=== PATIENT | male | born 1960 | race Caucasian/White ===

== ENCOUNTER → 2016-10-13 | Outpatient (CLI) | payer BC ==
[~2016-10-13] MED LIST: ALBU1AER9 INH; ASPCH81X PO; CHOL100010 PO; CITA20TA4 PO; CZR50 PO; FRN PO; FRS/40 PO; GADAVIST IV PRN; HYDR-5688 PO; INSDGIPEN SC; INSU100I2 SC; INSUINJ4 SC; LIRA18IN SC; LPT40 PO; METF500T5 PO; MOME100A INH; MONT1TAB3 PO; MULT-845 PO; NTRGSL/4 UT; OMEP20CA9 PO; PROM25TA9 PO; RANO500T PO; VLM5CL PO; VNTHFA/IN INH
--- NOTE | 2016-10-13 13:02 | DIAGNOSTIC IMAGING REPORT ---
MRI brain/IAC BRAIN COMBO FOR IAC CLINICAL HISTORY: H90.41 Asymmetrical right sensorineural hearing lossH93.19 Tinnie tinnitus. Hearing loss. TECHNIQUE: MRI multi axial acquisition COMPARISON STUDY: None FINDINGS: Diffusion-weighted images show no acute ischemic event. Signal characteristics of the cerebellar as well as cerebral hemispheres are unremarkable rib internal auditory canals are symmetric. There is no abnormal postcontrast enhancement. The 7th and 8th nerves are unremarkable. Sella parasellar regions are unremarkable. IMPRESSION: 1. Negative MRI brain. 2. Negative MRI of the internal auditory canals. Electronically signed by: Theo Lang M.D. 10/13/2016 1:00 PM
== END | disposition home or self-care (01) ==
LOC: C.MRI 11:18
PROVIDERS: ATTEND Hospitalist
DX: H93.19 Tinnitus, unspecified ear (principal); H90.41 Sensorineural hearing loss, unilateral, right ear, with unrestricted hearing on the contralateral side; R26.89 Other abnormalities of gait and mobility

== ENCOUNTER → 2017-01-09 | Outpatient (CLI) | payer BC ==
[~2017-01-09] MED LIST changes: -GADAVIST IV PRN
[2017-01-09 11:00] LABS: BLOOD UREA NITROGEN 7 mg/dl (7-18); BUN/CREATININE RATIO 6.2 (10-20); CALCIUM 8.5 mg/dl (8.5-10.1); CARBON DIOXIDE 25 mmol/L (21-32); CHLORIDE 102 mmol/L (98-107); GLUCOSE 173 mg/dl (70-99); SODIUM 137 mmol/L (136-145)
[2017-01-09 11:02] LABS: ESTIMATED AVERAGE GLUCOSE 140 mg/dl; HA1C FLAG Normal (Normal)
[2017-01-09 11:10] LABS: ALB/GLOB RATIO 0.9 (0.9-2); ALKALINE PHOSPHATASE 115 U/L (45-117); ALT/SGPT 33 U/L (12-78); AST/SGOT 18 U/L (15-37); CHOLESTEROL 121 mg/dl (0-200); CHOLESTEROL/HDL RATIO 2.9; HDL CHOLESTEROL 42 mg/dl; LDL CHOLESTEROL CALCULATED 56 mg/dl; TRIGLYCERIDES 114 mg/dl (0-150); VERY LOW DENSITY LIPOPROT CALC 23 mg/dl
== END | disposition home or self-care (01) ==
LOC: C.LAB1850 09:37
PROVIDERS: ATTEND Nurse Practitioner Adult Health
DX: E11.9 Type 2 diabetes mellitus without complications (principal); E78.5 Hyperlipidemia, unspecified; E66.01 Morbid (severe) obesity due to excess calories; E55.9 Vitamin D deficiency, unspecified

== ENCOUNTER 2017-02-23 12:54 | Emergency (ER) | payer BC ==
[~2017-02-23] VITALS: Ht 185.4 cm; Wt 147.3 kg
[~2017-02-23 12:54] MED LIST changes: -INSDGIPEN SC; -LIRA18IN SC; -PROM25TA9 PO; -VNTHFA/IN INH
[2017-02-23 12:58] VITALS: TEMP 36.8; Ht 185.4 cm; Wt 147.3 kg
[2017-02-23] MEDS ORDERED: SODIUM CHLORIDE 0.9% 1000ML 1,000 ML IV STA (13:21)
[2017-02-23] MEDS ORDERED: KETOROLAC TROMETHAMINE 30 MG/ML VIAL IV STA (13:21)
[2017-02-23] MEDS ORDERED: ONDANSETRON INJ 2 MG/ML 2 ML VIAL IV STA (13:21)
[2017-02-23 13:49] LABS: BASO % 0.5 %; BASO ABS # 0.04 K/uL (0-0.2); COMPLETE YES; EOS % 1.7 %; HEMATOCRIT 44.5 % (42-52); IG% 0.1 %; LYMPH % 26.1 %; LYMPH ABS # 2.09 K/uL (1.2-3.4); MEAN CELL VOLUME 87.6 fL (80-100); MEAN CORPUSCULAR HEMOGLOBIN 30.5 pg (25-34); MEAN CORPUSCULAR HGB CONC 34.8 g/dl (32-36); MEAN PLATELET VOLUME 8.9 fL (7.4-10.4); MONO % 9.6 %; PLATELET COUNT 242 K/uL (130-400); RED BLOOD COUNT 5.08 M/uL (4.7-6.1); WHITE BLOOD COUNT 8.01 K/uL (4.8-10.8)
[2017-02-23 14:08] LABS: BUN/CREATININE RATIO 8.3 (10-20); CALCIUM 8.7 mg/dl (8.5-10.1); CREATININE 1.1 mg/dl (0.60-1.40); POTASSIUM 4.1 mmol/L (3.5-5.1)
[2017-02-23 14:47] LABS: URINE APPEARANCE CLEAR (CLEAR); URINE BILIRUBIN NEG (NEG); URINE COLOR YELLOW; URINE NITRITE NEG (NEG); URINE PH 6.5 (4.5-7.5); URINE SPECIFIC GRAVITY 1.013 (1.000-1.030); UROBILINOGEN NEG (NEG)
[2017-02-23 14:51] LABS: MANUAL MICROSCOPIC REQUIRED? NO; REVIEW REQ? NO
[2017-02-23] MEDS ORDERED: LIRA18IN SC (15:22)
[2017-02-23] MEDS ORDERED: INSDGIPEN SC (15:22)
[2017-02-23] MEDS ORDERED: VNTHFA/IN INH (15:22)
[2017-02-23] MEDS ORDERED: PROM25TA9 PO (15:34)
[2017-02-23 15:44] VITALS: BP 132/80; PULSE 75; O2SAT 97
--- NOTE | 2017-02-23 15:50 | EMERGENCY ROOM VISIT NOTE ---
History First contact with patient: 13:04 Chief Complaint: VOMITING Stated Complaint: DIARRHEA,VOMITING,NAUSEA,WEAK,LIGHT HEADED History of Present Illness The patient is a 56 year old male who presents to the Emergency Room with complaints of a little more than 48 hours of nausea, vomiting and diarrhea. The patient reports that his symptoms started suddenly Monday morning. The patient now reports that he is becoming weak, lightheaded and with headache. The patient reports that his grandchildren had similar symptoms over the weekend. The patient denies any fevers or chills, difficulty with urination, chest pain, cough, shortness of breath, sore throat or sinus congestion. The patient does have a history of diabetes, and is on Victoza. His blood glucose levels are usually between 100-120 since being switched to Victoza approximately 5 weeks ago. His blood sugars on Monday were between 135 and 150. He reports that his levels were normal today. He did feel better after getting up this morning, but now reports worsening nausea and diarrhea late morning. He rates his overall discomfort an 8 out of 10. He denies any recent foreign travel. He denies eating any unusual foods. Review of Systems HEENT: Denies visual problems, hearing loss, tinnitus. Denies difficulty swallowing or oral lesions. PULMONARY: Denies cough, shortness of breath, sputum production or hemoptysis. CARDIOVASCULAR: Denies chest pain, palpitations, dyspnea on exertion, orthopnea or peripheral edema. GASTROINTESTINAL: See history of present illness. GENITOURINARY: Denies dysuria, frequency, urgency or nocturia. NEUROLOGIC: History of headaches. MUSCULOSKELETAL: Denies history of joint tenderness/swelling. SKIN: Denies rashes or lesions. PSYCHIATRIC: Denies history of depression or mental illness. ENDOCRINE: History of diabetes. Denies thyroid disorders. Past Medical/Surgical History Medical Problems: (1) ASTHMA, UNSPECIFIED (2) BODY MASS INDEX 60.0-69.9, ADULT (3) Migraine (4) NASAL & SINUS DIS NEC Medical Problems: (1) ASTHMA, UNSPECIFIED (2) Bipolar Disorder, Unspecified (3) BODY MASS INDEX 60.0-69.9, ADULT (4) Congestive Heart Failure Nos (5) Coronary Atherosclerosis Of [place] Coronary Vessel (6) Depressive Disorder Nec (7) Diab Kristen Wo Compl, Type Ii Or Unspec Type, Not Uncntrld (8) Duodenal Ulcer Nos (9) Esophageal Reflux (10) Hyperlipidemia Nec/Nos (11) Hypertension Nos (12) Migraine (13) Morbid (Severe) Obesity Due To Excess Calories (14) NASAL & SINUS DIS NEC Surgical Problems: (1) History of sinus surgery (2) History of wisdom tooth extraction Family History FH: HTN (hypertension) FH: diabetes mellitus FH: gallbladder disease FH: heart disease FH: lung disease FH: pneumonia FH: stroke Kidney stone Social History Smoking Status: Never Smoker Alcohol Use: none Marital Status: Housing Status: lives with family Occupation Status: employed, disabled Current/Historical Medications Scheduled Albuterol Hfa (Ventolin Hfa), 2-4 PUFFS INH Q6H Aspirin (Aspirin Chewable), 81 MG PO DAILY Atorvastatin (Atorvastatin Calcium), 40 MG PO HS Citalopram Hydrobromide (Citalopram Hydrobromide), 20 MG PO DAILY Insulin Glargine (Lantus Solostar), 5 UNITS SC QPM Insulin Lispro (Human) (Humalog Kwikpen), UNITS SC ACHS Liraglutide (Victoza), 1.8 ML SC QAM Losartan Potassium (Losartan Potassium), 50 MG PO DAILY Metformin Hcl Er (Glucophage Er), 1,000 MG PO QAM Mometasone Furoate-Formoterol (Dulera 100/5 Mcg), 2 AER INH BID Montelukast Sodium (Singulair), 10 MG PO HS Multiple Vitamins W/ Minerals (Centrum Silver Adult 50+), 1 TAB PO DAILY Nitroglycerin (Nitrostat), 0.4 MG UT PRN Omeprazole (Prilosec), 20 MG PO DAILY Scheduled PRN Uzhrqsetfa-Uuiehdm-Zzitlzyv (Butalbital/Aspirin/Caffei 50-325-40 mg), 1-2 CAP PO Q4H PRN for Headache Diazepam (Diazepam), 5 MG PO TID PRN for Anxiety Furosemide (Lasix), 40 MG PO DAILY PRN for Swelling/Weight Gain Promethazine Hcl (Phenergan), 25 MG PO Q6H PRN for Nausea Allergies Coded Allergies: Penicillins (Verified Allergy, Mild, RASH, 02/23/17) Physical Exam Vital Signs Date Time Temp Pulse Resp B/P Pulse Ox O2 Delivery O2 Flow Rate FiO2 02/23/17 14:22 71 20 146/93 93 Room Air 02/23/17 12:58 36.8 76 20 134/82 97 Room Air Physical Exam CONSTITUTIONAL: Healthy and well nourished. Alert and oriented X 3 with positive affect. Patient appears in mild to moderate distress. He does not appear toxic. HEENT: Normocephalic, atraumatic. Pupils equal, round and reactive. Ears and nares are clear. No scleral icterus or conjunctival injection/pallor. OROPHARYNX: Minimal posterior pharyngeal erythema without tonsillar hypertrophy or exudates. NECK: Full active range of motion without discomfort. No nuchal rigidity. RESPIRATORY: Clear to auscultation bilaterally with no wheezing, crackles, rhonchi or stridor. CARDIOVASCULAR: Regular rate and rhythm with no murmurs, rubs or gallops. GASTROINTESTINAL: Bowel sounds present in all quadrants. Abdomen is diffusely tender to palpation without any focal findings. Negative McBurney's point tenderness. Negative Lagunas sign. Negative CVA tenderness. No rigidity, guarding or rebound. MUSCULOSKELETAL: Full range of motion of all joints without discomfort. INTEGUMENTARY: No rash or other significant dermatologic conditions noted. HEMATOLOGIC: No ecchymosis or petechiae noted. NEUROLOGIC: Cranial nerves II-XII grossly intact. No focal neurologic deficits noted. Medical Decision & Procedures Laboratory Results 02/23/17 13:30 Red Blood Count 5.08, Mean Corpuscular Volume 87.6, Mean Corpuscular Hemoglobin 30.5, Mean Corpuscular Hemoglobin Concent 34.8, Mean Platelet Volume 8.9, Neutrophils (%) (Auto) 62.0, Lymphocytes (%) (Auto) 26.1, Monocytes (%) (Auto) 9.6, Eosinophils (%) (Auto) 1.7, Basophils (%) (Auto) 0.5, Neutrophils # (Auto) 4.96, Lymphocytes # (Auto) 2.09, Monocytes # (Auto) 0.77, Eosinophils # (Auto) 0.14, Basophils # (Auto) 0.04 02/23/17 13:30 Test 02/23/17 13:30 02/23/17 14:30 White Blood Count 8.01 K/uL (4.8-10.8) Red Blood Count 5.08 M/uL (4.7-6.1) Hemoglobin 15.5 g/dL (14.0-18.0) Hematocrit 44.5 % (42-52) Mean Corpuscular Volume 87.6 fL (80-100) Mean Corpuscular Hemoglobin 30.5 pg (25-34) Mean Corpuscular Hemoglobin Concent 34.8 g/dl (32-36) Platelet Count 242 K/uL (130-400) Mean Platelet Volume 8.9 fL (7.4-10.4) Neutrophils (%) (Auto) 62.0 % Lymphocytes (%) (Auto) 26.1 % Monocytes (%) (Auto) 9.6 % Eosinophils (%) (Auto) 1.7 % Basophils (%) (Auto) 0.5 % Neutrophils # (Auto) 4.96 K/uL (1.4-6.5) Lymphocytes # (Auto) 2.09 K/uL (1.2-3.4) Monocytes # (Auto) 0.77 K/uL (0.11-0.59) Eosinophils # (Auto) 0.14 K/uL (0-0.5) Basophils # (Auto) 0.04 K/uL (0-0.2) RDW Standard Deviation 41.1 fL (36.4-46.3) RDW Coefficient of Variation 12.8 % (11.5-14.5) Immature Granulocyte % (Auto) 0.1 % Immature Granulocyte # (Auto) 0.01 K/uL (0.00-0.02) Anion Gap 8.0 mmol/L (3-11) Est Creatinine Clear Calc Drug Dose 110.6 ml/min Estimated GFR () 85.3 Estimated GFR (Non- 73.6 BUN/Creatinine Ratio 8.3 (10-20) Calcium Level 8.7 mg/dl (8.5-10.1) Total Bilirubin 0.6 mg/dl (0.2-1) Direct Bilirubin 0.1 mg/dl (0-0.2) Aspartate Amino Transf (AST/SGOT) 33 U/L (15-37) Alanine Aminotransferase (ALT/SGPT) 47 U/L (12-78) Alkaline Phosphatase 98 U/L (45-117) Total Creatine Kinase 245 U/L (39-308) Total Protein 7.3 gm/dl (6.4-8.2) Albumin 3.7 gm/dl (3.4-5.0) Lipase 181 U/L (73-393) Urine Color YELLOW Urine Appearance CLEAR (CLEAR) Urine pH 6.5 (4.5-7.5) Urine Specific [place] 1.013 (1.000-1.030) Urine Protein NEG (NEG) Urine Glucose (UA) NEG (NEG) Urine Ketones NEG (NEG) Urine Occult Blood NEG (NEG) Urine Nitrite NEG (NEG) Urine Bilirubin NEG (NEG) Urine Urobilinogen NEG (NEG) Urine Leukocyte Esterase NEG (NEG) The above labs were reviewed and were grossly normal. Urinalysis shows no glucosuria or ketonuria. Medications Administered Medications (Trade) Dose Ordered Sig/Jose R Route Start Time Stop Time Status Last Admin Dose Admin Ketorolac Tromethamine 30 mg 30 mg NOW STAT IV 02/23/17 13:21 02/23/17 13:24 DC 02/23/17 13:39 30 MG Sodium Chloride (Nss 1000ml) 1,000 ml @ 999 mls/hr Q1H1M STAT IV 02/23/17 13:21 02/23/17 14:21 DC 02/23/17 13:38 999 MLS/HR Ondansetron HCl (Zofran Inj) 4 mg NOW STAT IV 02/23/17 13:21 02/23/17 13:24 DC 02/23/17 13:40 4 MG Procedure 1. IV hydration: The patient received a liter normal saline bolus 2. IV medications: Toradol 30 mg and Zofran 4 mg IVP ED Course Patient history and physical exam were performed. Nurse's notes were reviewed. Vital signs were reviewed and normal. The patient is afebrile, normotensive and not tachycardic. IV access was established, and labs were drawn. The patient was hydrated with normal saline, and received IV medications as discussed in the previous Procedure section. Review of labs showed no significant abnormalities. The patient did report improvement of his nausea, and only had mild abdominal cramping on final reevaluation. The patient felt well enough to go home, and did not feel thirsty at that time. The patient was encouraged to continue remaining well-hydrated. He was provided a prescription for Phenergan to prevent nausea. Ibuprofen or Tylenol as needed for pain or fever. The patient was encouraged to follow-up with his PCP if symptoms are not significantly improving within the next 48 hours. Turned emergency department for persistent vomiting, inability to remain hydrated, developing fever, worsening abdominal pain or other concerning symptoms. The patient was happy with plan of care, and voiced understanding of all discharge instructions. Medical Decision I suspect the patient has a viral gastroenteritis, given that his grandchildren had similar symptoms. Abdominal exam is benign without any focal findings. Laboratory studies are not suggestive of pancreatitis, hepatitis or cholecystitis. The patient is afebrile and has no leukocytosis. Impression Primary Impression: Gastroenteritis Departure Information Prescriptions Promethazine Hcl (Phenergan) 25 Mg Tab 25 MG PO Q6H Y for Nausea, #15 TAB Prov: Jese Vasquez PA 02/23/17 Referrals Roberto Gonzalez III, CRNP (PCP) Patient Instructions My [facility]
== END 2017-02-23 16:13 | disposition home or self-care (01) ==
LOC: C.EDB 12:56 → C.EDA 16:13
DX: K52.9 Noninfective gastroenteritis and colitis, unspecified (principal); E11.9 Type 2 diabetes mellitus without complications; J45.909 Unspecified asthma, uncomplicated; K21.9 Gastro-esophageal reflux disease without esophagitis; I25.10 Atherosclerotic heart disease of native coronary artery without angina pectoris; I10 Essential (primary) hypertension; E78.5 Hyperlipidemia, unspecified; F32.9 Major depressive disorder, single episode, unspecified; Z82.49 Family history of ischemic heart disease and other diseases of the circulatory system; Z98.818 Other dental procedure status; Z98.890 Other specified postprocedural states; Z83.3 Family history of diabetes mellitus; Z82.3 Family history of stroke; Z84.1 Family history of disorders of kidney and ureter; Z83.6 Family history of other diseases of the respiratory system; Z79.4 Long term (current) use of insulin; Z79.82 Long term (current) use of aspirin; Z79.84 Long term (current) use of oral hypoglycemic drugs; Z79.899 Other long term (current) drug therapy

== ENCOUNTER → 2017-10-19 | Outpatient (CLI) | payer BC ==
[~2017-10-19] VITALS: Ht 185.4 cm; Wt 148.2 kg
[~2017-10-19] MED LIST changes: -ALBU1AER9 INH; -CHOL100010 PO; -HYDR-5688 PO; +INSDGIPEN SC; -INSUINJ4 SC; +LIRA18IN SC; -RANO500T PO; +VNTHFA/IN INH
[2017-10-19 10:03] VITALS: BP 135/85; PULSE 72; Ht 185.4 cm; Wt 148.2 kg
== END | disposition home or self-care (01) ==
LOC: C.NEUR 08:50
PROVIDERS: ATTEND Internal Medicine Pulmonary Disease
DX: G47.33 Obstructive sleep apnea (adult) (pediatric) (principal)

== ENCOUNTER 2017-10-26 13:13 | Emergency (ER) | payer BC ==
[~2017-10-26] VITALS: Ht 185.4 cm; Wt 146.0 kg
[~2017-10-26 13:13] MED LIST changes: -CITA20TA4 PO; -CZR50 PO; -INSDGIPEN SC; -INSU100I2 SC; -LIRA18IN SC; -OMEP20CA9 PO; -VLM5CL PO; -VNTHFA/IN INH
[2017-10-26 13:33] VITALS: TEMP 37; Ht 185.4 cm; Wt 146.0 kg
[2017-10-26] MEDS ORDERED: INSDGIPEN SC (15:22)
[2017-10-26] MEDS ORDERED: VNTHFA/IN INH (15:22)
[2017-10-26] MEDS ORDERED: LIRA18IN SC (15:22)
--- NOTE | 2017-10-26 15:29 | EMERGENCY ROOM VISIT NOTE ---
History First contact with patient: 14:52 Chief Complaint: DIZZY Stated Complaint: LIGHT HEADED, DIZZY, SEEING WHITE SPOTS Nursing Triage Summary: pt lightheaded, dizzy, seeing white spots., lethargic, "not feeling myself". Symptoms since noon. Pt reports he had a fall on Mon, denies hitting head. c/o left writs and arm pain, left hip History of Present Illness 56M with a PMHx of [place] x 2, LE Edema, DM2 on insulin and HLD p/w a 3 hour history of sudden dizziness and seeing white spots. 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 This has happened in the past (many years ago) and per patient he was diagnosed with orthostatic hypotension and his BP meds needed to be reduced. He assumed that his current episode was due to low blood pressure. The patient drinks a lot of water and wasn't particularly warm today. The only medication change the patient did today was to take Lola -D which he doesn't usually take. The patient is a Type 2 Diabetic, he also thought he might be having low blood sugar and checked his blood sugar to be 138. Pt drink coffee at 11am, an hour before his symptoms started. He took the Lola D at 8am. Patient had a mechanical fall on ice on Monday. ROS: denies dysuria, denies diarrhea, denies SOB, denies chest pain, denies LE swelling. 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 Non smoker. Review of Systems See HPI for pertinent positives and negatives. A total of ten systems were reviewed and were otherwise negative. Past Medical/Surgical History Medical Problems: (1) ASTHMA, UNSPECIFIED (2) Bipolar Disorder, Unspecified (3) BODY MASS INDEX 60.0-69.9, ADULT (4) Congestive Heart Failure Nos (5) Coronary Atherosclerosis Of [place] Coronary Vessel (6) Depressive Disorder Nec (7) Diab Kristen Wo Compl, Type Ii Or Unspec Type, Not Uncntrld (8) Duodenal Ulcer Nos (9) Esophageal Reflux (10) Hyperlipidemia Nec/Nos (11) Hypertension Nos (12) Migraine (13) Morbid (Severe) Obesity Due To Excess Calories (14) NASAL & SINUS DIS NEC Surgical Problems: (1) History of sinus surgery (2) History of wisdom tooth extraction Family History FH: HTN (hypertension) FH: diabetes mellitus FH: gallbladder disease FH: heart disease FH: lung disease FH: pneumonia FH: stroke Kidney stone Social History Smoking Status: Never Smoker Alcohol Use: none Marital Status: Housing Status: lives with family Occupation Status: employed, disabled Current/Historical Medications Scheduled Albuterol Hfa (Ventolin Hfa), 2 PUFFS INH Q6H Aspirin (Aspirin Chewable), 81 MG PO DAILY Atorvastatin (Lipitor), 40 MG PO DAILY Cholecalciferol (Vitamin D), 2,000 UNITS DAILYBB Citalopram Hydrobromide (Citalopram Hydrobromide), 20 MG PO DAILY Cyanocobalamin (Vitamin B-12), 1,000 MCG PO DAILY Insulin Glargine (Lantus Solostar), 8 UNITS SC QPM Insulin Lispro (Human) (Humalog Kwikpen), UNITS SC ACHS Liraglutide (Victoza), 1.2 ML SC QAM Losartan Potassium (Losartan Potassium), 50 MG PO DAILY Mometasone Furoate-Formoterol (Dulera 100/5 Mcg), 2 AER INH BID Montelukast Sodium (Singulair), 10 MG PO HS Multiple Vitamins W/ Minerals (Centrum Silver Adult 50+), 1 TAB PO DAILY Nitroglycerin (Nitrostat), 0.4 MG UT PRN Omeprazole (Prilosec), 20 MG PO DAILY Scheduled PRN Zrqugqadeq-Kwiutvk-Pnrinttn (Butalbital/Aspirin/Caffei 50-325-40 mg), 1-2 CAP PO Q4H PRN for Headache Chlorpheniramine Maleate (Chlor-Trimeton), 4 MG PO Q4H PRN for Diazepam (Diazepam), 5 MG PO TID PRN for Anxiety Furosemide (Lasix), 40 MG PO DAILY PRN for Swelling/Weight Gain Ibuprofen (Advil), 400 MG PO Q6 PRN for Pain Physical Exam Vital Signs Date Time Temp Pulse Resp B/P (MAP) Pulse Ox O2 Delivery O2 Flow Rate FiO2 10/26/17 16:28 67 118/81 83 125/82 86 128/91 10/26/17 16:24 73 10/26/17 16:00 74 17 126/67 95 Room Air 10/26/17 13:33 37.0 90 18 149/89 97 Physical Exam Gen: Pt examined while sitting at bedside, he appeared dizzy and was told to lie on the bed with the rails up. Good historian, pleasant affect. Morbidly obese. HEENT: Head - normocephalic and atraumatic. Pupils are equal, round, and reactive to light. Extraocular eye muscles are intact and sclera are anicteric. Ears - bilaterally patent canals with noninjected tympanic membranes and no evidence of hemotympanum. Nose - moist nasal mucosa without discharge. Mouth - moist buccal mucosa. Oropharynx is nonerythematous and there is no tonsillar exudate or edema noted. Neck: Supple; no JVD, nuchal rigidity, cervical lymphadenopathy, or auscultated bruits. Heart: Regular rate and rhythm. There is a normal S1 and S2 with no murmurs, clicks, or gallops appreciated. Lungs: Clear to auscultation bilaterally with no wheezes, rales, or rhonchi. Abdomen: Soft, completely nontender, nondistended, with good bowel sounds. There are no palpable pulsatile masses or hepatosplenomegaly. There is no guarding, rigidity, or rebound noted. Pt is obese. There is tenderness in the LUQ from his recent fall. Extremities: No evidence of cyanosis, clubbing, or edema. There are easily palpable peripheral pulses. Neuro:The patient is awake and alert, oriented to day, time, and place. Muscle strength is 5/5 in all 4 extremities. 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 There are no cerebellar signs. Medical Decision & Procedures ER Provider Diagnostic Interpretation: CHEST ONE VIEW PORTABLE CLINICAL HISTORY: dizziness chest pain COMPARISON STUDY: 09/29/2016 FINDINGS: Moderate stable cardiomegaly. The lungs are clear. Diaphragms smooth. IMPRESSION: Moderate stable cardiomegaly. Lungs are clear. Laboratory Results 10/26/17 16:20 10/26/17 16:20 Test 10/26/17 16:20 10/26/17 16:28 Red Blood Count 5.13 M/uL (4.7-6.1) Mean Corpuscular Volume 86.9 fL (80-100) Mean Corpuscular Hemoglobin 31.2 pg (25-34) Mean Corpuscular Hemoglobin Concent 35.9 g/dl (32-36) RDW Standard Deviation 40.6 fL (36.4-46.3) RDW Coefficient of Variation 12.6 % (11.5-14.5) Mean Platelet Volume 8.7 fL (7.4-10.4) Anion Gap 6.0 mmol/L (3-11) Est Creatinine Clear Calc Drug Dose 114.2 ml/min Estimated GFR () 89.2 Estimated GFR (Non- 77.0 BUN/Creatinine Ratio 9.2 (10-20) Calcium Level 8.9 mg/dl (8.5-10.1) Magnesium Level 2.2 mg/dl (1.8-2.4) Total Bilirubin 0.4 mg/dl (0.2-1) Aspartate Amino Transf (AST/SGOT) 27 U/L (15-37) Alanine Aminotransferase (ALT/SGPT) 34 U/L (12-78) Alkaline Phosphatase 110 U/L (45-117) Total Protein 7.6 gm/dl (6.4-8.2) Albumin 3.7 gm/dl (3.4-5.0) Globulin 3.9 gm/dl (2.5-4.0) Albumin/Globulin Ratio 1.0 (0.9-2) Bedside Troponin I < 0.030 ng/ml (0-0.045) Medications Administered Medications (Trade) Dose Ordered Sig/Jose R Route Start Time Stop Time Status Last Admin Dose Admin Sodium Chloride 500 ml @ 500 mls/hr Q1H IV 10/26/17 15:30 11/25/17 15:29 10/26/17 15:30 500 MLS/HR Medical Decision The patient's care and disposition was discussed with Dr. Pascual, Attending ED Physician. This is a 56M with Dizziness. Differential diagnosis include etiologies such as benign positional vertigo, dehydration, hypovolemia, anemia, tumor, infection , hypoglycemia, electrolyte abnormalities, cardiac sources, intracerebral event , toxicologic, neurologic, as well as others were entertained. Triage Nursing notes were reviewed. ED Course included an extensive history and physical exam, labs, orthostatic vital signs. 3:00 - Entered the room to examine the patient and ordered preliminary labs afterwards. 3:22 - Discussed case with Dr. Pascual and orthostatic vital signs were ordered as well as a 500mL bolus. 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 CBC, Trops all WNL. BMP had sodium of 135. EKG - sinus rhythm, some PACs, diffuse non specific T wave change. XRAY WNL. Orthostatic Vital Signs were negative. The pt was informed about the findings as listed above. All questions were answered. Return instructions were outlined and the patient was discharged in good condition. The patient was referred to PCP for recheck of the current condition. Impression Primary Impression: Dizziness Departure Information Dispostion Home / Self-Care Condition GOOD Referrals Roberto Gonzalez III, CRNP (PCP) Patient Instructions ED Dizziness [facility], [facility] Additional Instructions You are being diagnosed with dizziness of uncertain origin. A possible cause of this dizziness is the Lola - D that you took combined with the caffeine that you do not normally consume. Lola D contains pseudoephedrine which can cause increased blood pressure. The increased pressure may have been the cause of your dizziness. Please refrain from taking Lola - D in the future especially when you are taking caffeine. Resident Involvement: Resident Care Provided Care Provided: Adult ED
[2017-10-26] MEDS ORDERED: SODIUM CHLORIDE 0.9% 500ML 500 ML IV SCH (15:30)
--- NOTE | 2017-10-26 15:36 | DIAGNOSTIC IMAGING REPORT ---
CHEST ONE VIEW PORTABLE CLINICAL HISTORY: dizziness chest pain COMPARISON STUDY: 09/29/2016 FINDINGS: Moderate stable cardiomegaly. The lungs are clear. Diaphragms smooth. IMPRESSION: Moderate stable cardiomegaly. Lungs are clear. The above report was generated using voice recognition software. It may contain grammatical, syntax or spelling errors. Electronically signed by: Theo Lang M.D. 10/26/2017 3:35 PM Dictated Date/Time: 10/26/2017 3:34 PM
[2017-10-26] MEDS ORDERED: CZR50 PO (15:49)
--- NOTE | 2017-10-26 15:56 | EMERGENCY ROOM VISIT NOTE ---
History Report prepared by Payton: Kilo Wharton Under the Supervision of: Dr. Mahesh Pascual M.D. First contact with patient: 14:51 Chief Complaint: DIZZY Stated Complaint: LIGHT HEADED, DIZZY, SEEING WHITE SPOTS Nursing Triage Summary: pt lightheaded, dizzy, seeing white spots., lethargic, "not feeling myself". Symptoms since noon. Pt reports he had a fall on Wed, denies hitting head. c/o left writs and arm pain, left hip History of Present Illness The patient is a 56 year old male who presents to the Emergency Room with complaints of sudden onset dizziness starting around three hours ago. 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 The patient states that he has had similar symptoms in the past, and he was diagnosed with orthostatic hypotension. He states that this morning he was not doing anything different than usual, though he took Lola D this morning which is unusual for him. He notes that he is a type 2 diabetic, and he thought that his blood sugar was low , though it was 138. The patient does report that he had a fall on ice yesterday that was mechanical, though he states that he did not hit his head. The patient denies any chest pain, abnormal shortness of breath, fever, diarrhea , and vomiting. He additionally states that he has been drinking a lot of water recently. The patient states that he had a cold a couple of weeks ago as well. Source of History: patient Onset: three hours ago Position: other (global) Quality: other (dizziness) Timing: other (sudden) Associated Symptoms: No fevers, No chest pain, No SOB, No vomiting, No diarrhea Note: Associated symptoms: Seeing white spots Review of Systems See HPI for pertinent positives & negatives. A total of 10 systems reviewed and were otherwise negative. Past Medical & Surgical Medical Problems: (1) ASTHMA, UNSPECIFIED (2) Bipolar Disorder, Unspecified (3) BODY MASS INDEX 60.0-69.9, ADULT (4) Congestive Heart Failure Nos (5) Coronary Atherosclerosis Of [place] Coronary Vessel (6) Depressive Disorder Nec (7) Diab Kristen Wo Compl, Type Ii Or Unspec Type, Not Uncntrld (8) Duodenal Ulcer Nos (9) Esophageal Reflux (10) Hyperlipidemia Nec/Nos (11) Hypertension Nos (12) Migraine (13) Morbid (Severe) Obesity Due To Excess Calories (14) NASAL & SINUS DIS NEC Surgical Problems: (1) History of sinus surgery (2) History of wisdom tooth extraction Family History FH: HTN (hypertension) FH: diabetes mellitus FH: gallbladder disease FH: heart disease FH: lung disease FH: pneumonia FH: stroke Kidney stone Social History Smoking Status: Never Smoker Alcohol Use: none Marital Status: Housing Status: lives with family Occupation Status: employed, disabled Current/Historical Medications Scheduled Albuterol Hfa (Ventolin Hfa), 2 PUFFS INH Q6H Aspirin (Aspirin Chewable), 81 MG PO DAILY Atorvastatin (Lipitor), 40 MG PO DAILY Cholecalciferol (Vitamin D), 2,000 UNITS DAILYBB Citalopram Hydrobromide (Citalopram Hydrobromide), 20 MG PO DAILY Cyanocobalamin (Vitamin B-12), 1,000 MCG PO DAILY Insulin Glargine (Lantus Solostar), 8 UNITS SC QPM Insulin Lispro (Human) (Humalog Kwikpen), UNITS SC ACHS Liraglutide (Victoza), 1.2 ML SC QAM Losartan Potassium (Losartan Potassium), 50 MG PO DAILY Mometasone Furoate-Formoterol (Dulera 100/5 Mcg), 2 AER INH BID Montelukast Sodium (Singulair), 10 MG PO HS Multiple Vitamins W/ Minerals (Centrum Silver Adult 50+), 1 TAB PO DAILY Nitroglycerin (Nitrostat), 0.4 MG UT PRN Omeprazole (Prilosec), 20 MG PO DAILY Scheduled PRN Ytutdxecpy-Zahuvqh-Qcmybvak (Butalbital/Aspirin/Caffei 50-325-40 mg), 1-2 CAP PO Q4H PRN for Headache Chlorpheniramine Maleate (Chlor-Trimeton), 4 MG PO Q4H PRN for Diazepam (Diazepam), 5 MG PO TID PRN for Anxiety Furosemide (Lasix), 40 MG PO DAILY PRN for Swelling/Weight Gain Ibuprofen (Advil), 400 MG PO Q6 PRN for Pain Allergies Coded Allergies: Penicillins (Verified Allergy, Mild, RASH, 02/23/17) Prednisone (Verified Adverse Reaction, Unknown, bsg elevation, 10/26/17) Physical Exam Vital Signs Date Time Temp Pulse Resp B/P (MAP) Pulse Ox O2 Delivery O2 Flow Rate FiO2 10/26/17 16:28 67 118/81 83 125/82 86 128/91 10/26/17 16:24 73 10/26/17 16:00 74 17 126/67 95 Room Air 10/26/17 13:33 37.0 90 18 149/89 97 Physical Exam GENERAL: Patient is in no acute distress. HEENT: No acute trauma, normocephalic atraumatic, mucous membranes moist, no nasal congestion, no scleral icterus. NECK: No stridor, no adenopathy, no meningismus, trachea is midline. LUNGS: Clear to auscultation bilaterally, no wheeze, no rhonchi, breath sounds equal. HEART: Without murmurs gallops or rubs, regular rate and rhythm. ABDOMEN: Soft, nontender, bowel sounds positive, no hernias, no peritonitis. EXTREMITIES: No cyanosis or edema, full range of motion of all the joints without pain or difficulty, no signs for acute trauma. NEUROLOGIC: Oriented x 3, no acute motor or sensory deficits, no focal weakness. SKIN: No rash, no jaundice, no diaphoresis. Medical Decision & Procedures ER Provider Diagnostic Interpretation: Orthostatic vital signs were negative. Radiology results as stated below per my review and radiologist interpretation: CHEST ONE VIEW PORTABLE CLINICAL HISTORY: dizziness chest pain COMPARISON STUDY: 09/29/2016 FINDINGS: Moderate stable cardiomegaly. The lungs are clear. Diaphragms smooth. IMPRESSION: Moderate stable cardiomegaly. Lungs are clear. The above report was generated using voice recognition software. It may contain grammatical, syntax or spelling errors. Electronically signed by: Theo Lang M.D. 10/26/2017 3:35 PM Dictated Date/Time: 10/26/2017 3:34 PM Laboratory Results 10/26/17 16:20 10/26/17 16:20 Test 10/26/17 16:20 10/26/17 16:28 Red Blood Count 5.13 M/uL (4.7-6.1) Mean Corpuscular Volume 86.9 fL (80-100) Mean Corpuscular Hemoglobin 31.2 pg (25-34) Mean Corpuscular Hemoglobin Concent 35.9 g/dl (32-36) RDW Standard Deviation 40.6 fL (36.4-46.3) RDW Coefficient of Variation 12.6 % (11.5-14.5) Mean Platelet Volume 8.7 fL (7.4-10.4) Anion Gap 6.0 mmol/L (3-11) Est Creatinine Clear Calc Drug Dose 114.2 ml/min Estimated GFR () 89.2 Estimated GFR (Non- 77.0 BUN/Creatinine Ratio 9.2 (10-20) Calcium Level 8.9 mg/dl (8.5-10.1) Magnesium Level 2.2 mg/dl (1.8-2.4) Total Bilirubin 0.4 mg/dl (0.2-1) Aspartate Amino Transf (AST/SGOT) 27 U/L (15-37) Alanine Aminotransferase (ALT/SGPT) 34 U/L (12-78) Alkaline Phosphatase 110 U/L (45-117) Total Protein 7.6 gm/dl (6.4-8.2) Albumin 3.7 gm/dl (3.4-5.0) Globulin 3.9 gm/dl (2.5-4.0) Albumin/Globulin Ratio 1.0 (0.9-2) Bedside Troponin I < 0.030 ng/ml (0-0.045) Laboratory results reviewed by me. Medications Administered Medications (Trade) Dose Ordered Sig/Jose R Route Start Time Stop Time Status Last Admin Dose Admin Sodium Chloride 500 ml @ 500 mls/hr Q1H IV 10/26/17 15:30 11/25/17 15:29 10/26/17 15:30 500 MLS/HR ECG Indication: weakness, other (dizziness) Rate (beats per minute): 71 Rhythm: sinus rhythm Findings: PAC, no acute ischemic change, other (Non-specific T wave changes) ED Course 1451: The patient was evaluated by the resident. 1530: Sodium Chloride 500 ml @ 500 mls/hr IV 1540: The patient was evaluated in room B2. A complete history and physical exam was performed. 1710: The patient was reevaluated. The results and discharge instructions were discussed: he verbalized understanding and agreement. The patient is ready for discharge. Medical Decision Differential diagnoses considered include hypotension, medications reaction, dehydration, dysrhythmia, low blood pressure, low blood sugar, and anemia.. There is no leukocytosis or concerning anemia. No significant electrolyte abnormality, kidney failure or hepatitis. EKG shows a sinus rhythm, no acute ischemia. Cardiac enzyme testing 1 is not consistent with acute cardiac injury. Orthostatic vital signs are negative. Chest film does not show pneumonia or CHF, no significant cardiomegaly. The patient was given a 500 mL saline bolus, he is doing well. I believe the Lola-D taken this morning was the reason for the patient's stranger sensations earlier today. The patient is currently stable, he will be discharged, no more Lola-D to be used. Medication Reconcilliation Current Medication List: was personally reviewed by me Blood Pressure Screening Patient's blood pressure: Normal blood pressure Impression Primary Impression: Weakness Additional Impression: Light headedness Scribe Attestation The scribe's documentation has been prepared under my direction and personally reviewed by me in its entirety. I confirm that the note above accurately reflects all work, treatment, procedures, and medical decision making performed by me. Departure Information Dispostion Home / Self-Care Referrals Roberto Gonzalez III, CRNP (PCP) Forms HOME CARE DOCUMENTATION FORM, IMPORTANT VISIT INFORMATION Patient Instructions My [facility] Additional Instructions You are being diagnosed with dizziness of uncertain origin. A possible cause of this dizziness is the Lola - D that you took combined with the caffeine that you do not normally consume. Lola D contains pseudoephedrine which can cause increased blood pressure. The increased pressure may have been the cause of your dizziness. Please refrain from taking Lola - D in the future especially when you are taking caffeine. Problem Qualifiers
[2017-10-26] MEDS ORDERED: ATOR-24 PO (16:01)
[2017-10-26] MEDS ORDERED: CHOL200010 (16:01)
[2017-10-26] MEDS ORDERED: CHLO4TAB PO (16:01)
[2017-10-26] MEDS ORDERED: IBUP-1050 PO (16:01)
[2017-10-26] MEDS ORDERED: CYAN10005 PO (16:01)
[2017-10-26 16:36] LABS: HEMATOCRIT 44.6 % (42-52); MEAN CELL VOLUME 86.9 fL (80-100); MEAN CORPUSCULAR HEMOGLOBIN 31.2 pg (25-34); MEAN CORPUSCULAR HGB CONC 35.9 g/dl (32-36); MEAN PLATELET VOLUME 8.7 fL (7.4-10.4); PLATELET COUNT 253 K/uL (130-400); RED CELL DISTRIBUTION WIDTH CV 12.6 % (11.5-14.5); RED CELL DISTRIBUTION WIDTH SD 40.6 fL (36.4-46.3); WHITE BLOOD COUNT 8.36 K/uL (4.8-10.8)
[2017-10-26 16:56] LABS: ALBUMIN 3.7 gm/dl (3.4-5.0); CALCIUM 8.9 mg/dl (8.5-10.1); CREATININE 1.06 mg/dl (0.60-1.40); POTASSIUM 3.8 mmol/L (3.5-5.1)
[2017-10-26 16:59] LABS: TOTAL PROTEIN 7.6 gm/dl (6.4-8.2)
[2017-10-26] MEDS ORDERED: INSU100I2 SC (17:45)
[2017-10-26] MEDS ORDERED: VLM5CL PO (17:45)
[2017-10-26] MEDS ORDERED: OMEP20CA9 PO (17:45)
[2017-10-26] MEDS ORDERED: CITA20TA4 PO (17:51)
[2017-10-26 18:31] VITALS: BP 125/75; PULSE 72; O2SAT 96
== END 2017-10-26 18:15 | disposition home or self-care (01) ==
LOC: C.EDB 13:14
DX: R42 Dizziness and giddiness (principal); R53.1 Weakness; I25.2 Old myocardial infarction; E11.9 Type 2 diabetes mellitus without complications; E78.5 Hyperlipidemia, unspecified; J45.909 Unspecified asthma, uncomplicated; F31.9 Bipolar disorder, unspecified; E66.01 Morbid (severe) obesity due to excess calories; Z68.44 Body mass index [BMI] 60.0-69.9, adult; I50.9 Heart failure, unspecified; I25.10 Atherosclerotic heart disease of native coronary artery without angina pectoris; K21.9 Gastro-esophageal reflux disease without esophagitis; I10 Essential (primary) hypertension; Z82.49 Family history of ischemic heart disease and other diseases of the circulatory system; Z83.3 Family history of diabetes mellitus; Z82.3 Family history of stroke; Z84.1 Family history of disorders of kidney and ureter; Z79.4 Long term (current) use of insulin; Z79.82 Long term (current) use of aspirin; Z79.899 Other long term (current) drug therapy

== ENCOUNTER 2017-11-05 19:56 | Emergency (ER) | payer BC ==
[~2017-11-05 19:56] MED LIST changes: +ATOR-24 PO; +CHLO4TAB PO; +CHOL200010 PO; +CITA20TA4 PO; +CYAN10005 PO; +CZR50 PO; +IBUP-1050 PO; +INSDGIPEN SC; +INSU100I2 SC; +LIRA18IN SC; -LPT40 PO; -METF500T5 PO; +OMEP20CA9 PO; +VLM5CL PO; +VNTHFA/IN INH
[2017-11-05 19:59] VITALS: Ht 185.4 cm
[2017-11-05] MEDS ORDERED: ONDANSETRON INJ 2 MG/ML 2 ML VIAL IV STA (20:27)
[2017-11-05] MEDS ORDERED: SODIUM CHLORIDE 0.9% 1000ML 1,000 ML IV STA ×2 (20:27→21:49)
--- NOTE | 2017-11-05 20:33 | EMERGENCY ROOM VISIT NOTE ---
History Report prepared by Payton: Kilo Wharton Under the Supervision of: Hollis SalasO. First contact with patient: 20:03 Chief Complaint: FLU LIKE SX Stated Complaint: VOMITING,DIARREHA,BLOOD SUGAR LOW,DIZZY History of Present Illness The patient is a 56 year old male who presents to the Emergency Room with complaints of persistent flu like symptoms starting around 1030 this morning. The patient starts that he was feeling nauseous, and then around noon he started having diarrhea. He took two Imodium around noon, and then around 1530 he took 2 more Imodium and an anti-nausea medication, and he vomited them both back up. The patient additionally states that he is light headed and dizzy, though he did not lose consciousness. He additionally reports that he has had the chills since 1600, and he has diffuse abdominal pain which has been constant and worse before he has a bowel movement. He states that he does not feel bloated or distended. The patient reports that his blood sugar was 102 at 1545, and then it was 79 around 1830. He denies any medication changes, recent travel, and eating any bad foods. He states that he has been around his grandchildren recently, and they have had colds. Source of History: patient Onset: 1030 Position: other (global) Quality: other (flu like symptoms) Timing: other (persistent) Associated Symptoms: + nausea, + vomiting, + abdominal pain, + diarrhea, No LOC Note: Associated symptoms: Light headed and dizzy. Review of Systems See HPI for pertinent positives & negatives. A total of 10 systems reviewed and were otherwise negative. Past Medical & Surgical Medical Problems: (1) ASTHMA, UNSPECIFIED (2) Bipolar Disorder, Unspecified (3) BODY MASS INDEX 60.0-69.9, ADULT (4) Congestive Heart Failure Nos (5) Coronary Atherosclerosis Of [place] Coronary Vessel (6) Depressive Disorder Nec (7) Diab Kristen Wo Compl, Type Ii Or Unspec Type, Not Uncntrld (8) Duodenal Ulcer Nos (9) Esophageal Reflux (10) Hyperlipidemia Nec/Nos (11) Hypertension Nos (12) Migraine (13) Morbid (Severe) Obesity Due To Excess Calories (14) NASAL & SINUS DIS NEC Surgical Problems: (1) History of sinus surgery (2) History of wisdom tooth extraction Family History FH: HTN (hypertension) FH: diabetes mellitus FH: gallbladder disease FH: heart disease FH: lung disease FH: pneumonia FH: stroke Kidney stone Social History Smoking Status: Never Smoker Alcohol Use: none Marital Status: Housing Status: lives with family Occupation Status: employed, disabled Current/Historical Medications Scheduled Albuterol Hfa (Ventolin Hfa), 2 PUFFS INH Q6H Aspirin (Aspirin Chewable), 81 MG PO DAILY Atorvastatin (Lipitor), 40 MG PO DAILY Cholecalciferol (Vitamin D), 2,000 INTER.UNIT PO DAILY Citalopram (Citalopram Hydrobromide), 20 MG PO DAILY Cyanocobalamin (Vitamin B-12), 1,000 MCG PO DAILY Dicyclomine Hcl (Bentyl), 20 CAP PO TID Insulin Glargine (Lantus Solostar), 8 UNITS SC QPM Insulin Lispro (Human) (Humalog Kwikpen), 1 DOSE SC ACHS Liraglutide (Victoza), 1.2 ML SC QAM Losartan Potassium (Losartan Potassium), 50 MG PO DAILY Metoclopramide Hcl (Reglan), 5 MG PO Q8 Mometasone Furoate-Formoterol (Dulera 100/5 Mcg), 2 PUFFS INH BID Montelukast Sod (Montelukast Sodium), 10 MG PO HS Multiple Vitamins W/ Minerals (Centrum Silver Adult 50+), 1 TAB PO DAILY Omeprazole (Prilosec), 20 MG PO DAILY Scheduled PRN Bnclquzamq-Jleqxfy-Nnzghegp (Butalbital/Aspirin/Caffei 50-325-40 mg), 1-2 CAP PO Q4H PRN for Headache Chlorpheniramine Maleate (Chlor-Trimeton), 4 MG PO Q4H PRN for Diazepam (Valium), 5 MG PO TID PRN for Anxiety Furosemide (Lasix), 40 MG PO DAILY PRN for Swelling/Weight Gain Ibuprofen (Advil), 400 MG PO Q6H PRN for Pain Nitroglycerin (Nitrostat), 0.4 MG UT UD PRN for Chest Pain Allergies Coded Allergies: Penicillins (Verified Allergy, Mild, RASH, 02/23/17) Prednisone (Verified Adverse Reaction, Unknown, bsg elevation, 10/26/17) Physical Exam Vital Signs Date Time Temp Pulse Resp B/P (MAP) Pulse Ox O2 Delivery O2 Flow Rate FiO2 11/06/17 01:26 80 18 105/55 95 Room Air 11/06/17 00:10 87 11/06/17 00:00 84 20 95 Room Air 11/05/17 23:30 93 19 95 Room Air 11/05/17 23:00 89 21 97 Room Air 11/05/17 22:26 37.7 94 18 131/70 96 Room Air 11/05/17 22:01 37.8 11/05/17 21:34 37.6 90 18 113/66 95 Room Air 11/05/17 20:34 99 11/05/17 19:59 36.9 102 20 127/74 96 Room Air Physical Exam GENERAL: alert, well appearing, well nourished, no distress, non-toxic, obese. EYE EXAM: normal conjunctiva, PERRL and EOM's grossly intact OROPHARYNX: no exudate, no erythema, lips, buccal mucosa, and tongue normal and mucous membranes are dry NECK: supple, no nuchal rigidity, no adenopathy, non-tender LUNGS: Clear to auscultation. Normal chest wall mechanics HEART: no murmurs, S1 normal and S2 normal ABDOMEN: abdomen soft, non-tender, normo-active bowel sounds, no masses, no rebound or guarding. BACK: Back is symmetrical on inspection and there is no deformity, no midline tenderness, no CVA tenderness. SKIN: no rashes and no bruising UPPER EXTREMITIES: upper extremities are grossly normal. LOWER EXTREMITIES: No pitting edema. NEURO EXAM: Normal sensorium, cranial nerves II-XII grossly intact, normal speech, no gross weakness of arms, no gross weakness of legs. Normal gait. Medical Decision & Procedures ER Provider Diagnostic Interpretation: Radiology results have been interpreted by the radiologist and reviewed by me. CHEST AND ABDOMEN 2 VIEWS HISTORY: Generalized abdominal pain. Nausea. Vomiting. Diarrhea. COMPARISON: Chest 10/26/2017. FINDINGS: The lungs remain clear. The heart is normal in size. No pneumoperitoneum. No pneumatosis. The bowel gas pattern is unremarkable. No dilated loops of bowel to suggest an obstruction. No renal or ureteral calculi. Fluid within the colon. IMPRESSION: 1. No acute process within the chest. 2. No evidence for bowel obstruction. 3. Fluid within the colon. This is nonspecific but can be seen in the setting of a gastroenteritis. Electronically signed by: Asim Mcneil M.D. 11/05/2017 9:46 PM Dictated Date/Time: 11/05/2017 9:43 PM Laboratory Results 11/05/17 20:30 Red Blood Count 5.86, Mean Corpuscular Volume 87.4, Mean Corpuscular Hemoglobin 30.5, Mean Corpuscular Hemoglobin Concent 35.0, Mean Platelet Volume 9.2, Neutrophils (%) (Auto) 91.2, Lymphocytes (%) (Auto) 4.0, Monocytes (%) (Auto) 3.8, Eosinophils (%) (Auto) 0.6, Basophils (%) (Auto) 0.2, Neutrophils # (Auto) 11.12, Lymphocytes # (Auto) 0.49, Monocytes # (Auto) 0.46, Eosinophils # (Auto) 0.07, Basophils # (Auto) 0.02 11/05/17 20:30 Test 11/05/17 20:30 11/05/17 20:40 11/05/17 20:45 11/05/17 23:00 White Blood Count 12.19 K/uL (4.8-10.8) Red Blood Count 5.86 M/uL (4.7-6.1) Hemoglobin 17.9 g/dL (14.0-18.0) Hematocrit 51.2 % (42-52) Mean Corpuscular Volume 87.4 fL (80-100) Mean Corpuscular Hemoglobin 30.5 pg (25-34) Mean Corpuscular Hemoglobin Concent 35.0 g/dl (32-36) Platelet Count 226 K/uL (130-400) Mean Platelet Volume 9.2 fL (7.4-10.4) Neutrophils (%) (Auto) 91.2 % Lymphocytes (%) (Auto) 4.0 % Monocytes (%) (Auto) 3.8 % Eosinophils (%) (Auto) 0.6 % Basophils (%) (Auto) 0.2 % Neutrophils # (Auto) 11.12 K/uL (1.4-6.5) Lymphocytes # (Auto) 0.49 K/uL (1.2-3.4) Monocytes # (Auto) 0.46 K/uL (0.11-0.59) Eosinophils # (Auto) 0.07 K/uL (0-0.5) Basophils # (Auto) 0.02 K/uL (0-0.2) RDW Standard Deviation 40.9 fL (36.4-46.3) RDW Coefficient of Variation 12.9 % (11.5-14.5) Immature Granulocyte % (Auto) 0.2 % Immature Granulocyte # (Auto) 0.03 K/uL (0.00-0.02) Anion Gap 9.0 mmol/L (3-11) Estimated GFR () 71.0 Estimated GFR (Non- 61.3 BUN/Creatinine Ratio 14.2 (10-20) Calcium Level 9.0 mg/dl (8.5-10.1) Total Bilirubin 1.0 mg/dl (0.2-1) Aspartate Amino Transf (AST/SGOT) 24 U/L (15-37) Alanine Aminotransferase (ALT/SGPT) 37 U/L (12-78) Alkaline Phosphatase 116 U/L (45-117) Total Protein 8.5 gm/dl (6.4-8.2) Albumin 3.9 gm/dl (3.4-5.0) Globulin 4.6 gm/dl (2.5-4.0) Albumin/Globulin Ratio 0.8 (0.9-2) Lipase 161 U/L (73-393) Influenza Type A Antigen Neg for Influ A (NEG) Influenza Type B Antigen Neg for Influ B (NEG) Bedside Lactic Acid Venous 1.66 mmol/L (0.90-1.70) Bedside Glucose 171 mg/dl (70-99) Date/Time Source Procedure Growth Status 11/05/17 23:58 Stool C.difficile Toxin B Gene (PCR) - Final No C. difficile toxin B gene detected Complete Laboratory results per my review. Medications Administered Medications (Trade) Dose Ordered Sig/Jose R Route Start Time Stop Time Status Last Admin Dose Admin Sodium Chloride 1,000 ml @ 999 mls/hr Q1H1M STAT IV 11/05/17 20:27 11/05/17 21:27 DC 11/05/17 20:50 999 MLS/HR Ondansetron HCl (Zofran Inj) 4 mg NOW STAT IV 11/05/17 20:27 11/05/17 20:30 DC 11/05/17 20:50 4 MG Sodium Chloride 1,000 ml @ 999 mls/hr Q1H1M STAT IV 11/05/17 21:49 11/05/17 22:49 DC 11/05/17 21:58 999 MLS/HR Metoclopramide HCl (Reglan Inj) 10 mg NOW STAT IV 11/05/17 22:16 11/05/17 22:17 DC 11/05/17 22:23 10 MG Diphenhydramine HCl (Benadryl Inj) 12.5 mg NOW STAT IV 11/05/17 22:16 11/05/17 22:17 DC 11/05/17 22:22 12.5 MG Acetaminophen (Tylenol Tab) 650 mg NOW STAT PO 11/05/17 22:16 11/05/17 22:17 DC 11/05/17 22:23 650 MG Dicyclomine HCl (Bentyl Cap) 20 mg NOW ONCE PO 11/05/17 23:45 11/05/17 23:46 DC 11/05/17 23:50 20 MG ECG Indication: vomiting Rate (beats per minute): 89 Rhythm: sinus rhythm Findings: left axis deviation, other (Normal intervals and low voltage) Change: EKG: Patient's electrocardiogram per my interpretation. ED Course 2018: The patient was evaluated in room B2. A complete history and physical exam was performed. 2026: Zofran 4mg IV, Sodium Chloride 1000 ml @ 999 mls/hr IV 9: Sodium Chloride 1000 ml @ 999 mls/hr IV 2205: I reevaluated the patient, and he was still feeling nauseous. 6: Tylenol Tab 650mg PO, Benadryl 12.5mg IV, Reglan 10mg IV 2244: I reevaluated the patient, and he looks better, and his vitals are good. He is still nauseous and had single episode of diarrhea. Culture sent. 0015: Patient feels abdominal cramping is improving and he is starting to tolerate ice chips and sips of by mouth at bedside. Medical Decision Differential diagnosis: Etiologies such as appendicitis, diverticulitis, PUD, biliary pathology, UTI, pancreatitis, obstruction, mesenteric ischemia, aortic pathology, infections, inflammatory bowel disease, renal colic, gastroenteritis, food borne illness, infections, GI bleed, biliary pathology, as well as others were entertained. Pt likely with viral illness and dehydrated leading to lightheadedness. Pt improved here with IVF and tolerating sips of po. Single episode of recurrent diarrhea, no recurrent vomiting. Doubt colitis, mesenteric ischemia, gastroparesis, no evidence of dka/hhnk, perf, gi bleed, sbo, aaa/dissection. Labs reassuring, intact renal function, repeat glucose checks reassuring despite decreased po intake. VS stable, pt ambulated to the bathroom without recurrent dizziness or orthostatic symptoms. Pt improved appearing at id. Did not feel pt required antibiotics given likely viral etiology. C.diff negative, other stool cultures pending. [place] Drug Monitoring Program Search Results: patient reviewed within database Medication Reconcilliation Current Medication List: was personally reviewed by me Blood Pressure Screening Patient's blood pressure: Normal blood pressure Impression Primary Impression: Diarrhea Additional Impressions: Nausea & vomiting Dehydration Lightheadedness Scribe Attestation The scribe's documentation has been prepared under my direction and personally reviewed by me in its entirety. I confirm that the note above accurately reflects all work, treatment, procedures, and medical decision making performed by me. Departure Information Dispostion Home / Self-Care Prescriptions Metoclopramide Hcl (REGLAN) 5 Mg Tab 5 MG PO Q8 for Nausea, #10 TAB Prov: Dee Dee Petty, DO 11/06/17 Dicyclomine Hcl (BENTYL) 10 Mg Cap 20 CAP PO TID for Pain, #30 CAP 1 Refill Prov: Dee Dee Petty, DO 11/06/17 Referrals Roberto Gonzalez III, CRNP (PCP) Patient Instructions My [facility] Additional Instructions Please continue to sip clear liquids at frequent intervals to stay well- hydrated. Please continue regular medications as prescribed. Please check her sugars more frequently has if you're not eating as much as usual your sugar levels may be different and he may need to adjust your insulin dosing. Your stool cultures will result in 48 hours. If additional treatment is necessary you'll receive a phone call. You may use the abdominal cramping medication as prescribed and the nausea medication as prescribed. Please eat a bland diet. If you develop recurrent pain, worsening diarrhea or blood with the bowel movement, recurrent vomiting, fevers or chills, chest pain or trouble breathing , have very high or very low sugar readings, feel dizzy or lightheaded, or you have any other new concerns, please return the emergency room. Problem Qualifiers Primary Impression: Diarrhea Diarrhea type: unspecified type Qualified Codes: R19.7 - Diarrhea, unspecified Additional Impressions: Nausea & vomiting Vomiting type: unspecified Vomiting Intractability: non-intractable Qualified Codes: R11.2 - Nausea with vomiting, unspecified
[2017-11-05 20:48] LABS: BASO % 0.2 %; BASO ABS # 0.02 K/uL (0-0.2); EOS % 0.6 %; EOS ABS # 0.07 K/uL (0-0.5); HEMATOCRIT 51.2 % (42-52); HEMOGLOBIN 17.9 g/dL (14.0-18.0); IG# 0.03 K/uL (0.00-0.02); LYMPH ABS # 0.49 K/uL (1.2-3.4); MEAN CELL VOLUME 87.4 fL (80-100); MEAN CORPUSCULAR HEMOGLOBIN 30.5 pg (25-34); MEAN PLATELET VOLUME 9.2 fL (7.4-10.4); MONO % 3.8 %; MONO ABS # 0.46 K/uL (0.11-0.59); NEUT % 91.2 %; NEUT ABS # 11.12 K/uL (1.4-6.5); PLATELET COUNT 226 K/uL (130-400); RED CELL DISTRIBUTION WIDTH CV 12.9 % (11.5-14.5); RED CELL DISTRIBUTION WIDTH SD 40.9 fL (36.4-46.3); WHITE BLOOD COUNT 12.19 K/uL (4.8-10.8)
[2017-11-05] MEDS ORDERED: CLX/20 PO (21:01)
[2017-11-05] MEDS ORDERED: LPT40 PO (21:01)
[2017-11-05] MEDS ORDERED: SNG10 PO (21:01)
[2017-11-05] MEDS ORDERED: DIAZ5TAB3 PO (21:05)
[2017-11-05 21:07] LABS: ALBUMIN 3.9 gm/dl (3.4-5.0); ALT/SGPT 37 U/L (12-78); BLOOD UREA NITROGEN 18 mg/dl (7-18); CARBON DIOXIDE 24 mmol/L (21-32); CREATININE 1.28 mg/dl (0.60-1.40); GLUCOSE 149 mg/dl (70-99); LIPASE 161 U/L (73-393); SODIUM 135 mmol/L (136-145)
[2017-11-05 21:10] LABS: ALKALINE PHOSPHATASE 116 U/L (45-117); AST/SGOT 24 U/L (15-37); TOTAL PROTEIN 8.5 gm/dl (6.4-8.2)
[2017-11-05 21:20] LABS: INFLUENZA B ANTIGEN Neg for Influ B (NEG)
--- NOTE | 2017-11-05 21:47 | DIAGNOSTIC IMAGING REPORT ---
CHEST AND ABDOMEN 2 VIEWS HISTORY: Generalized abdominal pain. Nausea. Vomiting. Diarrhea. COMPARISON: Chest 10/26/2017. FINDINGS: The lungs remain clear. The heart is normal in size. No pneumoperitoneum. No pneumatosis. The bowel gas pattern is unremarkable. No dilated loops of bowel to suggest an obstruction. No renal or ureteral calculi. Fluid within the colon. IMPRESSION: 1. No acute process within the chest. 2. No evidence for bowel obstruction. 3. Fluid within the colon. This is nonspecific but can be seen in the setting of a gastroenteritis. Electronically signed by: Asim Mcneil M.D. 11/05/2017 9:46 PM Dictated Date/Time: 11/05/2017 9:43 PM
[2017-11-05] MEDS ORDERED: ACETAMINOPHEN 325 MG TAB PO STA (22:16)
[2017-11-05] MEDS ORDERED: METOCLOPRAMIDE HCL INJ 5 MG/ML 2 ML VIAL IV STA (22:16)
[2017-11-05] MEDS ORDERED: DiphenhydrAMINE HCL 50 MG/ML VIAL IV STA (22:16)
[2017-11-05 22:26] VITALS: TEMP 37.7
[2017-11-05] MEDS ORDERED: DICYCLOMINE HCL 10 MG CAP PO ONE (23:45)
[2017-11-06] MEDS ORDERED: DICY10CA55 PO (00:57)
[2017-11-06] MEDS ORDERED: METO1TAB54 PO (01:00)
[2017-11-06 01:26] VITALS: BP 105/55; PULSE 80; O2SAT 95
== END 2017-11-06 01:57 | disposition home or self-care (01) ==
LOC: C.EDB 19:57
DX: R19.7 Diarrhea, unspecified (principal); R11.2 Nausea with vomiting, unspecified; E86.0 Dehydration; R42 Dizziness and giddiness; J45.909 Unspecified asthma, uncomplicated; F31.9 Bipolar disorder, unspecified; I11.0 Hypertensive heart disease with heart failure; I50.9 Heart failure, unspecified; I25.10 Atherosclerotic heart disease of native coronary artery without angina pectoris; F32.9 Major depressive disorder, single episode, unspecified; E11.9 Type 2 diabetes mellitus without complications; E78.5 Hyperlipidemia, unspecified; K21.9 Gastro-esophageal reflux disease without esophagitis; G43.909 Migraine, unspecified, not intractable, without status migrainosus; E66.01 Morbid (severe) obesity due to excess calories; K26.9 Duodenal ulcer, unspecified as acute or chronic, without hemorrhage or perforation; J34.9 Unspecified disorder of nose and nasal sinuses; Z82.49 Family history of ischemic heart disease and other diseases of the circulatory system; Z83.3 Family history of diabetes mellitus; Z82.3 Family history of stroke; Z84.1 Family history of disorders of kidney and ureter; Z79.4 Long term (current) use of insulin; Z79.82 Long term (current) use of aspirin

== ENCOUNTER → 2018-01-30 | Outpatient (CLI) | payer BC ==
[~2018-01-30] MED LIST changes: -ATOR-24 PO; -CITA20TA4 PO; +CLIN150C PO; +CLX/20 PO; +DIAZ5TAB3 PO; +DICY10CA55 PO; +LPT40 PO; +METO1TAB54 PO; -MONT1TAB3 PO; +OXYC1TAB3 PO; +SNG10 PO; -VLM5CL PO
[2018-01-30 12:11] LABS: HEMATOCRIT 45.5 % (42-52); HEMOGLOBIN 15.6 g/dL (14.0-18.0); MEAN CELL VOLUME 86.7 fL (80-100); MEAN CORPUSCULAR HEMOGLOBIN 29.7 pg (25-34); MEAN CORPUSCULAR HGB CONC 34.3 g/dl (32-36); MEAN PLATELET VOLUME 8.9 fL (7.4-10.4); PLATELET COUNT 279 K/uL (130-400); RED CELL DISTRIBUTION WIDTH CV 12.8 % (11.5-14.5); RED CELL DISTRIBUTION WIDTH SD 40.8 fL (36.4-46.3)
== END | disposition home or self-care (01) ==
LOC: C.LAB1850 10:13
PROVIDERS: ATTEND Internal Medicine Cardiovascular Disease
DX: E78.5 Hyperlipidemia, unspecified (principal); I10 Essential (primary) hypertension; I25.10 Atherosclerotic heart disease of native coronary artery without angina pectoris

== ENCOUNTER 2018-02-04 03:05 | Emergency (ER) | payer BC ==
[~2018-02-04] VITALS: Ht 185.4 cm; Wt 148.8 kg
[~2018-02-04 03:05] MED LIST changes: -CLIN150C PO; -OXYC1TAB3 PO
[2018-02-04 03:10] VITALS: TEMP 36.6; Ht 185.4 cm; Wt 148.8 kg
[2018-02-04] MEDS ORDERED: BENZOCAINE 20% (ORAJEL) 11.9 GM TUBE MT STA (03:35)
[2018-02-04] MEDS ORDERED: OXYC1TAB3 PO (03:38)
[2018-02-04] MEDS ORDERED: CLIN150C PO (03:38)
[2018-02-04] MEDS ORDERED: CLINDAMYCIN 150MG HOME PACK PO ONE (03:45)
[2018-02-04] MEDS ORDERED: OXYCODONE IR HOME PACK PO ONE (03:45)
[2018-02-04 04:01] VITALS: BP 137/88; PULSE 64; O2SAT 96
--- NOTE | 2018-02-04 04:02 | EMERGENCY ROOM VISIT NOTE ---
History First contact with patient: 03:14 Chief Complaint: DENTAL PAIN Stated Complaint: TOOTHACHE Nursing Triage Summary: pt c/o left upper tooth ache started last night, History of Present Illness The patient is a 57 year old male who presents to the Emergency Room with complaints of left upper dental pain for the past few days he was told by his family care doctor to come to the ER. Patient is a diabetic. Blood sugars have been running about normal per patient. Patient states he does not have a dentist and cannot afford one. He has not tried anything for his dental pain. He describes pain as aching, ranging in severity 7 out of 10 worse with palpation and better with rest. Patient denies fevers, cold symptoms, neck stiffness, dysphagia, chest pain, dyspnea or any other medical complaints. Review of Systems An 10 system review of systems was completed with positives and pertinent negatives listed in the HPI. Past Medical/Surgical History Medical Problems: (1) ASTHMA, UNSPECIFIED (2) Bipolar Disorder, Unspecified (3) BODY MASS INDEX 60.0-69.9, ADULT (4) Congestive Heart Failure Nos (5) Coronary Atherosclerosis Of [place] Coronary Vessel (6) Depressive Disorder Nec (7) Diab Kristen Wo Compl, Type Ii Or Unspec Type, Not Uncntrld (8) Duodenal Ulcer Nos (9) Esophageal Reflux (10) Hyperlipidemia Nec/Nos (11) Hypertension Nos (12) Migraine (13) Morbid (Severe) Obesity Due To Excess Calories (14) NASAL & SINUS DIS NEC Surgical Problems: (1) History of sinus surgery (2) History of wisdom tooth extraction Family History FH: HTN (hypertension) FH: diabetes mellitus FH: gallbladder disease FH: heart disease FH: lung disease FH: pneumonia FH: stroke Kidney stone Social History Smoking Status: Never Smoker Alcohol Use: none Marital Status: Housing Status: lives with family Occupation Status: employed, disabled Current/Historical Medications Scheduled Albuterol Hfa (Ventolin Hfa), 2 PUFFS INH Q6H Aspirin (Aspirin Chewable), 81 MG PO DAILY Atorvastatin (Lipitor), 40 MG PO DAILY Cholecalciferol (Vitamin D), 2,000 INTER.UNIT PO DAILY Citalopram (Citalopram Hydrobromide), 20 MG PO DAILY Clindamycin Hcl (Cleocin), 150 MG PO QID Cyanocobalamin (Vitamin B-12), 1,000 MCG PO DAILY Dicyclomine Hcl (Bentyl), 20 CAP PO TID Insulin Glargine (Lantus Solostar), 8 UNITS SC QPM Insulin Lispro (Human) (Humalog Kwikpen), 1 DOSE SC ACHS Liraglutide (Victoza), 1.2 ML SC QAM Losartan Potassium (Losartan Potassium), 50 MG PO DAILY Metoclopramide Hcl (Reglan), 5 MG PO Q8 Mometasone Furoate-Formoterol (Dulera 100/5 Mcg), 2 PUFFS INH BID Montelukast Sod (Montelukast Sodium), 10 MG PO HS Multiple Vitamins W/ Minerals (Centrum Silver Adult 50+), 1 TAB PO DAILY Omeprazole (Prilosec), 20 MG PO DAILY Scheduled PRN Rswkenfojq-Diuqtjp-Vyfruxrs (Butalbital/Aspirin/Caffei 50-325-40 mg), 1-2 CAP PO Q4H PRN for Headache Chlorpheniramine Maleate (Chlor-Trimeton), 4 MG PO Q4H PRN for Diazepam (Valium), 5 MG PO TID PRN for Anxiety Furosemide (Lasix), 40 MG PO DAILY PRN for Swelling/Weight Gain Ibuprofen (Advil), 400 MG PO Q6H PRN for Pain Nitroglycerin (Nitrostat), 0.4 MG UT UD PRN for Chest Pain Oxycodone Immediate Rel Tab (Roxicodone Ir), 1-2 TAB PO Q4H PRN for Severe Pain Physical Exam Vital Signs Date Time Temp Pulse Resp B/P (MAP) Pulse Ox O2 Delivery O2 Flow Rate FiO2 02/04/18 03:10 36.6 66 18 164/98 95 Room Air Physical Exam VITALS: Vitals are noted on the nurse's note and reviewed by myself. Vital signs hypertensive. GENERAL: White male in no acute distress, nondiaphoretic, well-developed well- nourished. SKIN: The skin was without rashes, erythema, edema, or bruising. There is no tenting of the skin. Capillary reflex less than 2 seconds. HEAD: Normocephalic atraumatic. EARS: External auditory canals clear, tympanic membranes pearly shane without erythema or effusion bilaterally. EYES: Pupils equal round and reactive to light and accommodation. Conjunctivae without injection, sclerae without icterus. Extraocular movements intact. NOSE: Patent, turbinates without inflammation or discharge. No sinus tenderness. MOUTH: Mucous membranes moist. Pharynx without erythema or exudate. Uvula midline. Airway patent. Tongue does not deviate. Dental exam: Left upper first molar is a crown and that is the gumline tender to palpation slightly erythematous without palpable abscess. Overall dental hygiene good NECK: Supple without nuchal rigidity. No lymphadenopathy. No thyromegaly. Cervical spine is nontender. No JVD. HEART: Regular rate and rhythm LUNGS: Clear to auscultation bilaterally without wheezes, rales or rhonchi. No retractions or accessory muscle use. MUSCULOSKELETAL: No muscle atrophy, erythema, noted. NEURO: Patient was alert and oriented to person place and time. Normal sensation to light and sharp touch. No focal neurological deficits. Medical Decision & Procedures ED Course Prior records reviewed and summarized as above. Triage Nursing notes reviewed. The patient's history was concerning for dental pain Differential diagnosis: Etiologies such as cellulitis, abscess, gingivitis, Sarmad's angina, cavity as well as others were entertained.. Physical examination: The physical examination was consistent with dental pain ER treatment provided: Cleocin, OxyIR, Orajel On reassessment the patient felt better. Diagnostics interpreted by me: Deferred This appears to be isolated dental pain. Patient's gumline was slightly erythematous. He was started on antibiotics and he is also a diabetic. He was informed that his blood pressure was elevated. He was informed to see dentist as soon as possible for his dental problem. Patient states he does not have one. He was informed he can look 1 up on line and that all the surrounding area dentistry's take harden. Patient was informed to return to the ER sooner for fevers, facial swelling, high blood sugars, dysphagia, worsening signs or symptoms or as needed. Patient had no signs of airway compromise. He was well-appearing. By the evaluation outlined above emergent etiologies such as abscess, Sarmad angina, as well as others were deemed relatively unlikely. The pt informed about the findings as listed above. All questions were answered and pleased with the treatment. Return instructions were outlined and the patient was discharged in stable condition. Outpatient prescription management: Cleocin, OxyIR Referral: The patient was referred dentist and primary care physician for follow-up in 2 to 3 days for a recheck of the current condition. Case reviewed with my attending The chart was completed utilizing [employer] Speech voice recognition software. Grammatical errors, random word insertions, pronoun errors, and incomplete sentences are an occassional consequence of this system due to software limitations, ambient noise, and hardware issues. Any formal questions or concerns about the content, text, or information contained within the body of this dictation should be directly addressed to the physician assistant pastry chef for clarification. Medical Decision As above [place] Drug Monitoring Program Search Results: patient reviewed within database, no issues identified Medication Reconcilliation Current Medication List: was personally reviewed by me Blood Pressure Screening Patient's blood pressure: Elevated blood pressure Blood pressure disposition: Elevated BP felt to be situational Impression Primary Impression: Pain, dental Departure Information Dispostion Home / Self-Care Condition GOOD Prescriptions Oxycodone Immediate Rel Tab (ROXICODONE IR) 5 Mg Tab 1-2 TAB PO Q4H Y for Severe Pain, #15 TAB initial course Prov: Denisha Arroyo .DAYA 02/04/18 Clindamycin Hcl (CLEOCIN) 150 Mg Cap 150 MG PO QID for 9 Days, #36 CAP Prov: Denisha Arrooy .DAYA 02/04/18 Forms HOME CARE DOCUMENTATION FORM, IMPORTANT VISIT INFORMATION Patient Instructions My [facility], ED Tooth Pain Additional Instructions Clindamycin 150mg: Take one pill 4 times daily for 10 days for your infection. Take with food, but avoid dairy. Avoid prolonged sun exposure since this medication makes you temporarily more susceptible to sunburns. All antibiotics can cause diarrhea. If this occurs and you feel worse or it does not resolve in 1-2 days follow up with your doctor or return to the Emergency Department as this could be signs of serious underlying problems. Any medication can cause an allergic reaction, stop the pills immediately and return to the ER for rash, hives, breathing difficulties, or swelling. Oxycodone (OxyIR) 5mg: Take 1-2 pills every four hours for breakthrough pain. Avoid alcohol, operating machinery or dangerous equipment, working on ladders or roofs, DRIVING, or situations where being under the influence may be dangerous. It is recommended to use an [id number]-pvtfzzw stool softener such as Colace, 100mg twice daily while taking this medication to avoid constipation. Ibuprofen(Motrin, Advil) may be used for fever or pain. Use 600mg every six hours as needed. Take with food. Avoid using more than 2400mg in a 24 hour period. Do not use 2400mg per day for more than three consecutive days without physician direction. Prolonged inappropriate use can lead to stomach upset or ulcers. This medication can be taken if you need to drive, work, or perform activities which may be dangerous when taking narcotic pain medication. (AND/OR) Acetaminophen(Tylenol) may be used for fever or pain. Use 1000mg every six hours as needed. Avoid using more than 3000mg in a 24 hour period. This medication can be taken if you need to drive, work, or perform activities which may be dangerous when taking narcotic pain medication. [place] teeth twice a day, floss daily and do warm saltwater gargles 3 times a day. See a dentist as soon as possible for definitive care for your dental problem. Return to ER sooner for facial swelling, fever, redness, worsening signs or symptoms or as needed.
== END 2018-02-04 04:04 | disposition home or self-care (01) ==
LOC: C.EDB 03:06 → C.EDA 04:04
DX: K08.89 Other specified disorders of teeth and supporting structures (principal); E11.9 Type 2 diabetes mellitus without complications; J45.909 Unspecified asthma, uncomplicated; F31.9 Bipolar disorder, unspecified; I50.9 Heart failure, unspecified; I11.0 Hypertensive heart disease with heart failure; I25.10 Atherosclerotic heart disease of native coronary artery without angina pectoris; F32.9 Major depressive disorder, single episode, unspecified; K21.9 Gastro-esophageal reflux disease without esophagitis; E78.5 Hyperlipidemia, unspecified; Z79.82 Long term (current) use of aspirin; Z79.4 Long term (current) use of insulin; Z79.899 Other long term (current) drug therapy

== ENCOUNTER → 2018-02-19 | Outpatient (CLI) | payer BC ==
[~2018-02-19] MED LIST changes: +OXYC1TAB3 PO
[2018-02-19 12:35] LABS: HEMOGLOBIN A1C 6.3 % (4.5-5.6)
== END | disposition home or self-care (01) ==
LOC: C.LAB1850 10:30
PROVIDERS: ATTEND Nurse Practitioner Family
DX: E11.9 Type 2 diabetes mellitus without complications (principal); E55.9 Vitamin D deficiency, unspecified

== ENCOUNTER → 2018-05-01 | Outpatient (CLI) | payer BC ==
[~2018-05-01] MED LIST changes: +OXYC-737 PO; -OXYC1TAB3 PO
--- NOTE | 2018-05-02 06:00 | SPLIT NIGHT TECHNICIAN REPORT ---
[facility] Split Night Polysomnogram - Boiler Fireman Report Study date: 05/01/2018 Referring Physician: Dr. Otto Zazueta DO Name: JOSHUA ZHANG Boiler Fireman: ANASTASIIA Huitron. Date of : 1960 Height: 57 years, Height 6' 1" Sex: Male Weight: 326.8 lbs Age: 57 Neck Circum: 21.5 inches BMI: Medications: 43.11 Aspirin 81 mg, Atorvastatin Calcium 40 mg, Azelastine HCL 0.15, Rudrogbkfu-YPS-Wlygnsfn 50-325-40 mg, Centrum SIlver, Chlor-Trimeton 4mg, Citalopram 20 mg, D2000 2000 tabs, Diazepam 5 mg, Dulera 200-5 MCG/ACT, Furosemide 40 mg, Glucagon, Humalog, Ibuprofen 200 mg, Lantus , Loperamide 2 mg, Losartan Potassium 50 mg, Montelukast Sodium 10 mg, NitroStat, Omeprazole 20 mg, Ventolion HFA, Victoza 18MG/3ML, Vitamin B-12, Vitamin D 2000 units Patient History 57 yr old. male here for a diagnostic sleep study. Patient complains of snoring, disturbed nocturnal sleep. EDS and nocturnal hypoxia. He also has HTN, diabetes, and CAD. ESS 12/30. Parameters Monitored NPSG: E1-M2, E2-M1, Fp1-M2, Fp2-M1, F3-M2, F4-M2, F4-M1, C3-M2, C4-M2, C4-M1, O1-M2, O2-M2, O2-M1, T3-M2, T4-M1, P3-M2, P4-M1, CHIN1, CHIN2, HR, EKG, Legs, PFLOW, SNOR, FLOW, CFLOW, Tidal Volume, THOR, ABDO, SpO2, PLTH, CPRESS, ETCO2 Wave, ETCO2, pH SLEEP SUMMARY DATA DIAGNOSTIC TREATMENT Lights Out: 8:26:10 PM NONE Lights On: 1:21:40 AM 5:47:40 AM Total Recording Time (TRT): 295.6 min. 260.4 min. Total Sleep Time (TST): 121.0 min. 235.5 min. NREM Time: 121.0 min. 187.5 min. REM Time: 0.0 min. 48.0 min. Sleep Period Time (SPT): 265.5 min. 241.0 min. Sleep Efficiency (SE): 41 % 90 % Sleep Latency: 29.0 min. NONE min. Arousal Index: 40.7 13.2 PAP Treatment Levels: 4, 5, 6, 8, 10 * Optimal Pressure(s) SLEEP STAGING DATA DIAGNOSTIC TREATMENT Duration (min) TST % Duration (min) TST % Stage Wake: 174.6 min. -- 24.9 min. -- WASO: 145.5 min. -- 5.5 min. -- NREM: 121.0 min. 100 % 187.5 min. 80 % Stage N1: 96.0 min. 79 % 20.0 min. 8 % Stage N2: 25.0 min. 21 % 130.0 min. 55 % Stage N3: 0.0 min. 0 % 37.5 min. 16 % REM: 0.0 min. 0 % 48.0 min. 20 % POSITIONAL DATA Event Count Index Event Count Index Supine: 42 42 7 2.4 Supine NREM: 42 42.0 7 3.3 Supine REM: N/A N/A 0 0 Non-Supine: 42 41.3 50 49.5 Non-Supine NREM: 42 41.3 50 49.5 Non-Supine REM: N/A N/A N/A N/A AROUSAL SUMMARY DATA: Event Count Index Event Count Index Apnea Arousals: 3 3.0 2 1.3 Hypopnea Arousals: 24 11.9 10 2.5 Snore Arousals: 7 3.5 22 5.6 PLM Arousals: 45 22.3 17 4.3 Non-Specific Arousals: 4 2.0 1 0.3 Total Arousals: 82 40.7 52 13.2 MYOCLONUS (PLM) Event Count Index Event Count Index PLM: 245 121.5 63 16.1 PLM AROUSAL: 45 22.3 17 4.3 PLM W/O AROUSAL 245 121.5 46 11.7 PLM W/RESP EVENT 34 0.0 0 0.0 MYOCLONUS (PLM) Event Count Index Event Count Index LM: 2 15.9 63 16.1 LM AROUSAL: 2 1.0 3 0.8 LM W/O AROUSAL LM W/RESP EVENT LM NON SPECIFIC 186 92.2 98 25.0 HEART RATE DATA DIAGNOSTIC TREATMENT Sleep (bpm): 63 60 REM (bpm): N/A 91 NREM (bpm): 92 91 Tachycardia Count: 0 0 Tachycardia Duration: 0.00 0 Bradycardia Count: 0 0 Bradycardia Duration: 0.00 0 DIAGNOSTIC PORTION TREATMENT PORTION RESPIRATORY DATA Event Count Index Event Count Index AHI: -- 41.7 -- 14.5 RDI: -- 41.7 -- 15 Obstructive Apnea: 6 3.0 5 1.3 Central Apnea: 0 0.0 0 0.0 Mixed Apnea: 0 0.0 0 0.0 Hypopnea: 78 38.7 52 13.2 RERA: 0 0.0 0 0.0 Total Apneas: 6 3.0 5 1.3 RESPIRATORY DATA REM NREM SLEEP REM NREM SLEEP Supine Position: Obstructive Apneas: N/A 1 1 0 0 0 Central Apneas: N/A 0 0 0 0 0 Mixed Apneas: N/A 0 0 0 0 0 Hypopneas: N/A 41 41 0 7 7 RERA N/A 0 0 0 0 0 Total Supine Events: N/A 42 42 0 7 7 Supine AHI: N/A 42.0 42 0 3.3 2.4 Supine RDI: N/A 42.0 42.0 0.0 3.3 2.4 REM NREM SLEEP REM NREM SLEEP Non-Supine Position: Obstructive Apneas: N/A 5 5 N/A 5 5 Central Apneas: N/A 0 0 N/A 0 0 Mixed Apneas: N/A 0 0 N/A 0 0 Hypopneas: N/A 37 37 N/A 45 45 RERA N/A 0 0 N/A 0 0 Total Supine Events: N/A 42 42 N/A 50 50 Supine AHI: N/A 41.3 41.3 N/A 49.5 49.5 Supine RDI: N/A 41.3 41.3 N/A 49.5 49.5 OXYGEN DESTAURATION DATA: Event Count Index Event Count Index REM Desaturations: N/A N/A 0 0.0 NREM Desaturations: 89 44.1 51 16.3 SNORE DATA DIAGNOSTIC TREATMENT Snore Time: 8.2 1:45:40 AM Snore TST%: 7 9 Snore Arousal Count: 7 22 Snore Arousal Index: 3.5 5.6 Desaturation Event Summary: Minimum %SpO2 Event Count Mean/Min/Max Duration(sec.) Desaturation Index % Time In Bed > 90 172 22.7 / 7.0 / 60.0 23.0 83.1 86 - 90 29 19.2 / 4.8 / 56.8 19.1 16.8 81 - 85 0 N/A 0.0 0.1 76 - 80 0 N/A 0.0 0.0 71 - 75 0 N/A 0.0 0.0 66 - 70 0 N/A 0.0 0.0 61 - 65 0 N/A 0.0 0.0 56 - 60 0 N/A 0.0 0.0 51 - 55 0 N/A 0.0 0.0 < 50 0 N/A 0.0 0.0 OXYGEN SATURATION DATA DIAGNOSTIC TREATMENT SpO2 Mean Sleep: 92 % 91 % SpO2 Mean REM: N/A % 91 % SpO2 Mean NREM: 92 % 91 % SpO2 Minimum Sleep: 85 % 85 % SpO2 Minimum REM: N/A % 88 % SpO2 Minimum NREM: 85 % 85 % Time Below 90% (TST): 12.2 25.9 Time Below 88% (TST): 2.4 2.5 Total REM NREM Awake <50% 0.0 min. 0.0 min. 0.0 min. 0.0 min. 51 - 60% 0.0 min. 0.0 min. 0.0 min. 0.0 min. 61 - 70% 0.0 min. 0.0 min. 0.0 min. 0.0 min. 71 - 80% 0.0 min. 0.0 min. 0.0 min. 0.0 min. 81 - 90% 91.5 min. 9.2 min. 72.5 min. 9.8 min. 91 - 100% 449.3 min. 37.7 min. 234.9 min. 176.7 min. Average 92 91 92 94 Minimum SpO2 85 88 85 85 Desaturation Event Index 18.8 0.0 27.2 10.5 # Desat. Events below 89% 80 N/A 71 9 Time(%) with Saturation below 89% 3.5 0.0 3.2 0.3 Time(min.) with Saturation below 89% 18.9 0.1 17.3 1.4 Recording Boiler Fireman Comments: Mr. Zhang slept in the right, left, and supine positions. PVC's and PLMs noted. No bruxism noted. Snoring was noted and scored as a 2 on a scale of 0 through 5. (0=no snoring, 5=snoring loud enough to be heard through a closed door or down the [address] way) At 1:25 am Mr. Zhang met specific Split-Night criteria during the diagnostic portion of this study. CPAP was initiated at +4 CMH2O room air and up-titrated to a level of +10 CMH2O no Cflex, which nearly eliminated all respiratory events and snoring. A Medium Sensorin and D8A Group Simplus, was used during titration. Mr. Zhang awoke to use the restroom two times during the night. The final report will be interpreted and signed by a sleep physician. The completed physician report will then be placed in the patient medical record. Therapy Event: Therapy (cm H20) 0 4 5 6 8 10 Total Time at Pressure (min.) 295.6 34.7 10.7 8.4 15.4 191.3 TST at Pressure (min.) 121.0 15.3 10.7 8.4 15.4 185.8 # Periods 1 1 1 1 1 1 Sleep Onset (min.) 29.0 19.4 0.0 0.0 0.0 0.0 REM Onset (min.) N/A N/A N/A N/A N/A 53.3 Sleep Efficiency % 40 44 100 100 100 97 Wakefulness (%) 59.1 55.9 0.0 0.0 0.0 2.9 Wakefulness (min.) 174.6 19.4 0.0 0.0 0.0 5.5 NREM 1 (%) 32.5 36.0 37.4 0.0 0.0 1.8 NREM 1 (min.) 96.0 12.5 4.0 0.0 0.0 3.5 NREM 2 (%) 8.5 8.1 62.6 100.0 100.0 50.6 NREM 2 (min.) 25.0 2.8 6.7 8.4 15.4 96.8 NREM 3 (%) 0.0 0.0 0.0 0.0 0.0 19.6 NREM 3 (min.) 0.0 0.0 0.0 0.0 0.0 37.5 REM (%) 0.0 0.0 0.0 0.0 0.0 25.1 REM (min.) 0.0 0.0 0.0 0.0 0.0 48.0 # Arousals 82 8 18 6 1 19 Arousal Index 40.7 31.3 101.0 43.0 3.9 6.1 # Snore 331 33 60 88 184 582 Snore Index 164.1 129.3 336.7 630.7 719.2 188.0 AHI 41.7 47.0 73.0 71.7 78.2 0.6 AHI Supine 42.0 69.2 N/A N/A N/A 0.4 AHI Non-Supine 41.3 35.6 73.0 71.7 78.2 3.7 NREM AHI 41.7 47.0 73.0 71.7 78.2 0.9 REM AHI N/A N/A N/A N/A N/A 0.0 RDI 41.7 47.0 73.0 71.7 78.2 0.6 # Obstructive 6 1 4 0 0 0 # Central Ap 0 0 0 0 0 0 # Mixed 0 0 0 0 0 0 # Hypopneas 78 11 9 10 20 2 RERAS 0 0 0 0 0 0 Total Respiratory Events 84 12 13 10 20 2 Time Below SpO2 89.00% (min.) 5.5 0.2 0.7 0.3 4.3 6.4 Mean NREM SpO2 (%) 92 93 92 92 90 92 Mean REM SpO2 (%) N/A N/A N/A N/A N/A 91 Mean Sleep SpO2 (%) 92 93 92 92 90 91 Min NREM SpO2 (%) 85 87 86 87 85 86 Min REM SpO2 (%) N/A N/A N/A N/A N/A 88 Position Supine (min.) 60.0 5.2 0.0 0.0 0.0 169.7 Position Non-supine (min.) 61.0 10.1 10.7 8.4 15.4 16.1 LM Index Sleep 137.4 3.9 61.7 21.5 19.5 34.2 LM Index NREM 137.4 3.9 61.7 21.5 19.5 34.8 LM Index REM N/A N/A N/A N/A N/A 32.5 Mean Heart Rate (bpm) 63 61 61 61 60 60 Min Heart Rate (bpm) 57 57 57 58 56 55
--- NOTE | 2018-05-05 09:20 | POLYSOMNOGRAPH REPORT ---
CLINICAL DATA: The patient is a 57-year-old male with a history of snoring, disturbed nocturnal sleep, and daytime sleepiness. He has a known history of nocturnal hypoxia. Comorbidities include hypertension, diabetes, and coronary artery disease. This was an in-lab overnight split study. SLEEP ARCHITECTURE: During the diagnostic portion of the study, the sleep period time was 265.5 minutes. The total sleep time was 121 minutes. The sleep efficiency was severely reduced to 41%. The sleep latency was prolonged to 29 minutes. Sleep consisted of stage N1 79%, stage N2 21%, stage N3 0%, stage, REM 0%. During the treatment portion of the study, the patient's respiratory events were treated with nasal CPAP. The sleep period time was 241 minutes. The total sleep time was 235.5 minutes. The sleep efficiency was normalized to 90%. Sleep consisted of stage N1 8%, stage N2 55%, stage N3 16%, stage REM 20%. AROUSAL DATA: During the diagnostic portion of the study, the patient had 82 arousals including 4 nonspecific arousals, 45 PLM arousals, 7 snoring arousals, 24 hypopnea arousals, and 3 apnea arousals. The arousal index was 40.7. During the treatment portion of the study, there were 52 arousals, including 1 nonspecific arousal, 17 PLM arousals, 22 snoring arousals, 10 hypopnea arousals, and 2 apnea arousals. The arousal index was 13.2. PLM DATA: During the diagnostic portion of the study, the patient had 245 periodic limb movements for a PLM index severely elevated at 121.5. There were 45 arousals associated with limb movements for a PLM arousal index of 22.3. During the therapeutic portion of the study, the patient had 63 periodic limb movements for a PLM index of 16.1. There were 17 arousals associated with limb movements for a PLM arousal index of 4.3. EKG: The underlying cardiac rhythm was normal sinus. There were mild number of PVCs. The cardiac rates ranged from 63-92 beats per minute. RESPIRATORY DATA: During the diagnostic portion of the study, the patient had a total of 84 respiratory events including 6 obstructive apneas and 78 hypopneas. Hypopneas were scored according to the 4% desaturation rule. The apnea hypopnea index was severely elevated at 41.7 events per hour. During the therapeutic portion of the study, his respiratory events were treated with nasal CPAP. He had a total of 57 respiratory events including 5 obstructive apneas and 52 hypopneas. The apnea hypopnea index was 14.5. At the final pressure of 10 cm, his apnea-hypopnea index was only 0.6. OXIMETRY DATA: During the diagnostic portion of the study, the mean saturation was 92%. The minimum saturation was 85%. There was 2.4 minutes with saturations less than 88%. During the treatment portion, the mean saturation was 91%. The minimum saturation was 85%. There was a total of 2.5 minutes with saturations less than 88%. SLPS COMMENTS: Mr. Macdonald slept in the right, left, and supine positions. PVCs and PLMs noted. No bruxism noted. Snoring was noted and scored as a 2 on a scale of 0 through 5. At 1:25 a.m., Mr. Macdonald met specific split night criteria during the diagnostic portion of the study. CPAP was initiated at 4 cm and up titrated to 10 cm which nearly eliminated all respiratory events and snoring. A medium Malone and Paykel Simplus was used during titration. Mr. Macdonald awoke to use the restroom 2 times during the night. IMPRESSION: 1. Severe obstructive sleep apnea. 2. Periodic limb movement disorder. COMMENTS: The patient has severe sleep apnea. He responded well to nasal CPAP therapy. There was a dramatic improvement in sleep architecture with increased stage N3 and REM sleep and a significant decrease in stage N1 sleep. There was a significant decrease in arousals during the treatment portion. He seemed to tolerate CPAP very well. RECOMMENDATIONS: 1. It is advised that the patient be started on nasal CPAP at 10 cm. 2. It is advised that he should utilize a Malone and Paykel Simplus mask, size medium. This was given to him from the sleep lab. 3. The patient should avoid sleeping in the supine position as there are typically more respiratory events while supine. 4. The patient has an elevated body mass index of 43.11. Weight loss is advised. 5. The patient has frequent periodic limb movements. Consideration is given to checking a serum ferritin level to determine if he might have iron deficiency as a cause for the limb movement disorder.
== END | disposition home or self-care (01) ==
LOC: C.NEUR 20:00
PROVIDERS: ATTEND Internal Medicine Pulmonary Disease
DX: G47.33 Obstructive sleep apnea (adult) (pediatric) (principal); E66.01 Morbid (severe) obesity due to excess calories; Z68.41 Body mass index [BMI] 40.0-44.9, adult; E11.9 Type 2 diabetes mellitus without complications; I10 Essential (primary) hypertension; Z79.899 Other long term (current) drug therapy